=== PATIENT | female | born 1980 | race African-American/Black ===

== ENCOUNTER 2016-05-26 19:29 | Emergency (ER) | payer MEDICARE, MEDICAID ==
--- NOTE | 2016-05-26 20:03 | ER Document Report ---
ED Medical Screen (RME) - General Stated Complaint: VAGINAL BLEEDING Notes: 35 yo female c/o vaginal bleeding and lower abdominal cramping. has been on menses since 05/17, stasrted passing clots today. hx/o HTN, DM, gastric sleeve TRAVEL OUTSIDE OF THE [place] IN LAST 30 DAYS: No - Related Data Allergies/Adverse Reactions: No Known Allergies Allergy (Verified 11/07/13 12:06) Past Medical History - Past Medical History Cardiac Medical History: Reports: Hx Hypercholesterolemia, Hx Hypertension Denies: Hx Coronary Artery Disease, Hx Heart Attack Pulmonary Medical History: Denies: Hx Asthma, Hx Bronchitis, Hx COPD, Hx Pneumonia Neurological Medical History: Denies: Hx Cerebrovascular Accident, Hx Seizures Endocrine Medical History: Reports: Hx Diabetes Mellitus Type 1, Hx Diabetes Mellitus Type 2 Musculoskeltal Medical History: Denies Hx Arthritis Past Surgical History: Reports: Hx Appendectomy, Hx Genitourinary Surgery - Gastric Sleeve 01/2015 - Immunizations Hx Diphtheria, Pertussis, Tetanus Vaccination: No Physical Exam - Vital signs Vitals: Temp Pulse Resp BP Pulse Ox 97.9 F 56 L 16 154/86 H 100 05/26/16 19:43 05/26/16 19:43 05/26/16 19:43 05/26/16 19:43 05/26/16 19:43 Course - Vital Signs Vital signs: Temp Pulse Resp BP Pulse Ox 97.9 F 56 L 16 154/86 H 100 05/26/16 19:43 05/26/16 19:43 05/26/16 19:43 05/26/16 19:43 05/26/16 19:43
[2016-05-26] MEDS ORDERED: IBUPROFEN SUSP 100 MG/5 ML ORAL SYRINGE PO ONE (20:19)
[2016-05-26 20:29] LABS: ABSOLUTE BASOPHILS # (AUTO) 0.1 10^3/uL (0.0-0.2); ABSOLUTE LYMPHOCYTES (AUTO) 4.9 10^3/uL (0.5-4.7); ABSOLUTE MONOCYTES (AUTO) 0.8 10^3/uL (0.1-1.4); ABSOLUTE NEUT (AUTO) 5.3 10^3/uL (1.7-8.2); BASOPHILS % (AUTO) 0.8 % (0-2); EOSINOPHILS % (AUTO) 0.3 % (0-6); HEMATOCRIT 34.6 % (36.0-47.0); HEMOGLOBIN 11.5 g/dL (12.0-15.5); HGB HCT DIFFERENCE -0.1; MEAN CORPUSCULAR HEMOGLOBIN 28.1 pg (27.0-33.4); MEAN CORPUSCULAR HGB CONC 33.3 g/dL (32.0-36.0); MEAN CORPUSCULAR VOLUME 84 fl (80-97); MONOCYTES % (AUTO) 7.6 % (3-13); RED CELL DISTRIBUTION WIDTH 14.5 % (11.5-14.0); SEGMENTED NEUTROPHILS % (AUTO) 47.3 % (42-78); WHITE BLOOD COUNT 11.1 10^3/uL (4.0-10.5)
--- NOTE | 2016-05-26 23:45 | ER Document Report ---
ED General - General Chief Complaint: Vaginal Bleeding Stated Complaint: VAGINAL BLEEDING Notes: Patient is a 35-year-old female presents with complaint of lower stomach cramping and vaginal bleeding. Has been passing large amount clots. She did not know that she is . She's had one. . This ended in miscarriage. Bleeding is been ongoing for one week. No vomiting. No diarrhea. Pain is diffusely across the lower abdomen. TRAVEL OUTSIDE OF THE [place] IN LAST 30 DAYS: No - Related Data Allergies/Adverse Reactions: No Known Allergies Allergy (Verified 05/26/16 20:02) Past Medical History - Social History Smoking Status: Unknown if Ever Smoked Frequency of alcohol use: None Drug Abuse: None Family History: Reviewed & Not Pertinent Patient has suicidal ideation: No Patient has homicidal ideation: No - Past Medical History Cardiac Medical History: Reports: Hx Hypercholesterolemia, Hx Hypertension Denies: Hx Coronary Artery Disease, Hx Heart Attack Pulmonary Medical History: Denies: Hx Asthma, Hx Bronchitis, Hx COPD, Hx Pneumonia Neurological Medical History: Denies: Hx Cerebrovascular Accident, Hx Seizures Endocrine Medical History: Reports: Hx Diabetes Mellitus Type 1, Hx Diabetes Mellitus Type 2 Renal/ Medical History: Denies: Hx Peritoneal Dialysis Musculoskeltal Medical History: Denies Hx Arthritis Past Surgical History: Reports: Hx Appendectomy, Hx Genitourinary Surgery - Gastric Sleeve 01/2015 - Immunizations Hx Diphtheria, Pertussis, Tetanus Vaccination: No Review of Systems - Review of Systems Notes: My Normal Review Basic REVIEW OF SYSTEMS: CONSTITUTIONAL : Denies fever, chills, or sweats. Denies recent illness. RESPIRATORY: Denies cough, cold, or chest congestion. Denies shortness of breath, difficulty breathing, or wheezing. GASTROINTESTINAL: Lower abdominal pain. Denies nausea, vomiting, or diarrhea. Denies constipation. Last BM: GENITOURINARY: Denies difficulty urinating, painful urination, burning, frequency, or blood in urine. FEMALE GENITOURINARY: Heavy vaginal bleeding. MUSCULOSKELETAL: Denies neck or back pain or joint pain or swelling. SKIN: Denies rash or skin lesions. HEMATOLOGIC : Denies easy bruising or bleeding. NEUROLOGICAL: Denies altered mental status or loss of consciousness. ALL OTHER SYSTEMS REVIEWED AND NEGATIVE. Physical Exam - Vital signs Vitals: Temp Pulse Resp BP Pulse Ox 97.9 F 56 L 16 154/86 H 100 05/26/16 19:43 03/22/17 19:43 05/26/16 19:43 05/26/16 19:43 05/26/16 19:43 - Notes Notes: General Appearance: Well nourished, alert, cooperative, no acute distress, no obvious discomfort. Vitals: reviewed, See vital signs table. Head: no swelling or tenderness to the head Eyes: PERRL, EOMI, Conjuctiva clear Mouth: No decreasd moisture Lungs: No wheezing, No rales, No rhonci, No accessory muscle use, good air exchange bilaterally. Heart: Normal rate, Regular rythm, No murmur, no rub Abdomen: Normal BS, soft, No rigidity, moderate lower abdominal tenderness. Palpation, No guarding, no rebound, no abdominal masses, no organomegaly Pelvic: Normal external genitalia. Some blood in vaginal vault. Cervix is approximately fingertip on visualization. Extremities: strength 5/5 in all extremities, good pulses in all extremities, no swelling or tenderness in the extremities, no edema. Skin: warm, dry, appropriate color, no rash Neuro: speech clear, oriented x 3, normal affect, responds appropriately to questions. Course - Vital Signs Vital signs: Temp Pulse Resp BP Pulse Ox 98.1 F 71 16 151/96 H 100 05/27/16 03:12 05/27/16 03:12 05/27/16 03:12 05/27/16 03:12 05/27/16 03:12 - Laboratory Result Diagrams: 05/26/16 20:15 05/27/16 00:53 Laboratory results interpreted by me: 05/26/16 05/26/16 05/27/16 20:15 20:15 00:53 WBC 11.1 H Hgb 11.5 L Hct 34.6 L RDW 14.5 H Absolute Lymphocytes 4.9 H Potassium 3.0 L* Creatinine 0.51 L Serum HCG, Qual POSITIVE H Beta HCG, Quant 58672.00 H - Transfer of Care Notes: 05/27/16 06:39 Patient's findings on pelvic exam and also on ultrasound With most likely a miscarriage. Things are like she's having ectopic being that she does not have pain is focal to 170 other and also because her Quance is 19,000 and no ectopic is seen on ultrasound. Informed her that she must follow-up next 4 days for reevaluation and repeat of her ACG level. Informed her she should return to ER immediately if she has severe pain, heavy bleeding, or appears unwell. Patient' s abdomen is soft and minimally tender on reevaluation and she looks well. I verbally explained all results and follow-up plan with both the patient and the patient's mother. They agree with plan and patient will be discharged home. Dictation of this chart was performed using voice recognition software; therefore, there may be some unintended grammatical errors. Discharge - Discharge Clinical Impression: Vaginal bleeding in Qualifiers: Trimester: first trimester Qualified Code(s): O46.91 - Antepartum hemorrhage, unspecified, first trimester Condition: Good Disposition: HOME, SELF-CARE Additional Instructions: At this time we do not see evidence of a live on your ultrasound. I suspect that your most likely undergoing a miscarriage. You will most likely continue to have some bleeding for several days. Even though I suspect you're undergoing a miscarriage, it is not 100% certain that this is case. We want you to follow up with the OB doctor, your physician, or the ER in 4-5 days for reevaluation and repeat of your hormone level. Your hormone level today is just over 19,000. Please return to ER immediately if you have severe pain or heavy bleeding as this could be sign of a ectopic . I think ectopic is highly unlikely at this time; however, is always still possible. Referrals: MELA FORD MD [Primary Care Provider] - Follow up as needed GINGER BENITEZ MD [ACTIVE STAFF] - Follow up in 3-5 days
[2016-05-27 01:18] LABS: ALANINE AMINOTRANSFERASE 42 U/L (9-52); ALBUMIN 3.8 g/dL (3.5-5.0); ALKALINE PHOSPHATASE 75 U/L (38-126); ANION GAP 13 (5-19); ASPARTATE AMINO TRANSFERASE 22 U/L (14-36); BILIRUBIN,DIRECT 0.3 mg/dL (0.0-0.4); BILIRUBIN,TOTAL 0.6 mg/dL (0.2-1.3); BLOOD UREA NITROGEN 8 mg/dL (7-20); CALCIUM 9.5 mg/dL (8.4-10.2); CARBON DIOXIDE 26 mmol/L (22-30); CHLORIDE 105 mmol/L (98-107); CREATININE RESULT 0.51 mg/dL (0.52-1.25); GLUCOSE 84 mg/dL (75-110); SODIUM 144.2 mmol/L (137-145); TOTAL PROTEIN 7.7 g/dL (6.3-8.2)
[2016-05-27] MEDS ORDERED: POTASSIUM CHLORIDE 10 MEQ TABLET.SA PO ONE (01:57)
[2016-05-27 03:15] VITALS: BP 151/96
[2016-05-27 03:40] LABS: CHLAM PCR NOT DETECTED (NOT DETECT)
== END 2016-05-27 03:12 | disposition home or self-care (01) ==
LOC: ER 19:29
DX: O46.91 Antepartum hemorrhage, unspecified, first trimester (principal); R10.30 Lower abdominal pain, unspecified; E78.00 Pure hypercholesterolemia, unspecified; I10 Essential (primary) hypertension; E11.9 Type 2 diabetes mellitus without complications
CPT/HCPCS: 99284; 86900; 86901; 36415; 87210; 84702; 84703; 85025; 80053; 87491; 87591; 76817; 93976; A9270 ×2

== ENCOUNTER 2017-11-21 16:22 | Emergency (ER) | payer MEDICARE, MEDICAID ==
[2017-11-21 17:53] VITALS: BP 150/93
[2017-11-21] MEDS ORDERED: METOPROLOL TARTRATE 50 MG TABLET PO ONE (17:57)
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
== END 2017-11-21 18:03 | disposition home or self-care (01) ==
LOC: ER 16:22
DX: I10 Essential (primary) hypertension (principal); Z76.0 Encounter for issue of repeat prescription
CPT/HCPCS: 99281; A9270

== ENCOUNTER 2018-02-21 19:32 | Observation (INO) | payer MEDICARE, MEDICAID ==
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
[2018-02-21] MEDS ORDERED: AMLODIPINE BESYLATE 10 MG TABLET PO ONE (19:52)
[2018-02-21] MEDS ORDERED: NORMAL SALINE 1000 ML 1,000 ML IV ONE (19:52)
--- NOTE | 2018-02-21 20:27 | RADIOLOGY REPORT (SQ) ---
EXAM DESCRIPTION: CHEST SINGLE VIEW COMPLETED DATE/TIME: 02/21/2018 8:15 pm REASON FOR STUDY: chest pain COMPARISON: 09/17/2014 NUMBER OF VIEWS: One view. TECHNIQUE: Single frontal radiographic view of the chest acquired. LIMITATIONS: None. FINDINGS: LUNGS AND PLEURA: No opacities, masses or pneumothorax. No pleural effusion. MEDIASTINUM AND HILAR STRUCTURES: No masses. Contour normal. HEART AND VASCULAR STRUCTURES: Heart enlarged without failure. Normal vasculature. BONES: No acute findings. HARDWARE: None in the chest. OTHER: No other significant finding. IMPRESSION: HEART ENLARGED WITHOUT FAILURE. NO OTHER SIGNIFICANT RADIOGRAPHIC FINDING IN THE CHEST. TECHNICAL DOCUMENTATION: JOB ID: [id number] [employer]- All Rights Reserved Reading location - IP/workstation name: [email or web address]
--- NOTE | 2018-02-21 21:20 | RADIOLOGY REPORT (SQ) ---
CT HEAD WITHOUT IV CONTRAST HISTORY: Syncope. COMPARISON: None. TECHNIQUE: CT scan of the brain without IV contrast. This exam was performed according to our departmental dose-optimization program, which includes automated exposure control, adjustment of the mA and/or kV according to patient size and/or use of iterative reconstruction technique. FINDINGS: The ventricles, cisterns, and sulci are age-appropriate. No focal white matter lesions are seen. The oliveira-white matter differentiation is preserved without evidence of acute territorial infarction. No intracranial hemorrhage, midline shift, or extra-axial fluid collection is identified. No air-fluid levels are seen in the paranasal sinuses. The calvarium is intact. IMPRESSION: No acute intracranial abnormality.
[2018-02-21 21:25] LABS: ABSOLUTE BASOPHILS # (AUTO) 0.1 10^3/uL (0.0-0.2); ABSOLUTE LYMPHOCYTES (AUTO) 4.8 10^3/uL (0.5-4.7); ABSOLUTE MONOCYTES (AUTO) 0.5 10^3/uL (0.1-1.4); ABSOLUTE NEUT (AUTO) 3.5 10^3/uL (1.7-8.2); BASOPHILS % (AUTO) 0.9 % (0-2); EOSINOPHILS % (AUTO) 0.3 % (0-6); HEMATOCRIT 36.1 % (36.0-47.0); HEMOGLOBIN 11.9 g/dL (12.0-15.5); LYMPHOCYTES % (AUTO) 53.7 % (13-45); MEAN CORPUSCULAR HEMOGLOBIN 28.7 pg (27.0-33.4); MEAN CORPUSCULAR HGB CONC 32.9 g/dL (32.0-36.0); MEAN CORPUSCULAR VOLUME 88 fl (80-97); MONOCYTES % (AUTO) 5.5 % (3-13); PLATELET COUNT 385 10^3/uL (150-450); RED BLOOD COUNT 4.13 10^6/uL (3.72-5.28); RED CELL DISTRIBUTION WIDTH 13.8 % (11.5-14.0); SEGMENTED NEUTROPHILS % (AUTO) 39.6 % (42-78); TOTAL CELLS COUNTED % (AUTO) 100 %; WHITE BLOOD COUNT 8.9 10^3/uL (4.0-10.5)
[2018-02-21 21:47] LABS: ALANINE AMINOTRANSFERASE 6 U/L (9-52); ALBUMIN 3.6 g/dL (3.5-5.0); ALKALINE PHOSPHATASE 82 U/L (38-126); ANION GAP 6 (5-19); ASPARTATE AMINO TRANSFERASE 12 U/L (14-36); BILIRUBIN,DIRECT 0.2 mg/dL (0.0-0.4); BILIRUBIN,TOTAL 0.3 mg/dL (0.2-1.3); BLOOD UREA NITROGEN 16 mg/dL (7-20); CALCIUM 9.3 mg/dL (8.4-10.2); CARBON DIOXIDE 29 mmol/L (22-30); CHLORIDE 107 mmol/L (98-107); CREATINE KINASE 55 U/L (30-135); GLUCOSE 97 mg/dL (75-110); POTASSIUM 3.8 mmol/L (3.6-5.0); SODIUM 142.4 mmol/L (137-145); TOTAL PROTEIN 7.5 g/dL (6.3-8.2)
[2018-02-21 22:00] LABS: CREATINE KINASE MB < 0.22 ng/mL (<4.55)
[2018-02-21 22:01] LABS: TROPONIN I < 0.012 ng/mL
--- NOTE | 2018-02-21 23:01 | RADIOLOGY REPORT (SQ) ---
CT CHEST ANGIOGRAPHY WITHOUT THEN WITH IV CONTRAST HISTORY: Shortness of breath. Evaluate for pulmonary embolism. COMPARISON: None. TECHNIQUE: CT angiogram of the chest with IV contrast. 3-D MIP images were obtained in coronal and sagittal reconstructions. This exam was performed according to our departmental dose-optimization program, which includes automated exposure control, adjustment of the mA and/or kV according to patient size and/or use of iterative reconstruction technique. FINDINGS: The heart size is mildly enlarged. No pericardial effusion is seen. There is no thoracic aortic aneurysm or dissection. No acute pulmonary embolism is seen in the main or segmental branches. The pulmonary trunk is mildly enlarged measuring 3.6 cm. No mediastinal, hilar, or axillary adenopathy is seen. No consolidation, pleural effusion, or pneumothorax is identified. Limited views of the upper abdomen demonstrate prior gastric surgery and cholecystectomy. The osseous structures are intact. IMPRESSION: No acute pulmonary embolism.
[2018-02-22] MEDS ORDERED: NORMAL SALINE 1000 ML 1,000 ML IV PRN (07:10)
--- NOTE | 2018-02-22 07:54 | EKG REPORT ---
SEVERITY:- ABNORMAL ECG - SINUS RHYTHM LEFT VENTRICULAR HYPERTROPHY : Confirmed by: Fred Reardon MD 22-Feb-2018 07:53:49
[2018-02-22] MEDS ORDERED: ENOXAPARIN SODIUM INJ 40 MG/0.4 ML DISP.SYRIN SUBCUT SCH (10:00)
[2018-02-22 17:35] VITALS: BP 133/76
--- NOTE | 2018-02-22 18:20 | PDOC H&P ---
History of Present Illness Admission Date/PCP: 02/22/18 00:30 MELA FORD MD History of Present Illness: YIN LEMONS is a 37 year old female, She came to the emergency room last night for evaluation of loss of consciousness. The history was that she had unprovoked left-sided chest pain associated with loss of consciousness. Mother stated that when she regained consciousness she was confused, incoherent there was no associated tongue biting or urinary incontinence ,she is a diabetic the Accu-Chek that was done at the time was 106 so the symptoms she experienced was not from hypoglycemia. Patient's mother was very concerned because of family history of seizure, the mother felt that what she had was a seizure, in the emergency room a CTA chest was done because of concern for pulmonary embolism, this was negative CT head was done this was negative as well. The ED physician wanted her admitted for observation Past Medical History Cardiac Medical History: Reports: Hyperlipidema, Hypertension Endocrine Medical History: Reports: Diabetes Mellitus Type 2 Renal/ Medical History: Reports: None Malignancy Medical History: Reports: None GI Medical History: Reports: None Psychiatric Medical History: Reports: None Traumatic Medical History: Reports: None Hematology: Denies: Anemia Infectious Medical History: Reports: None Past Surgical History Past Surgical History: Reports: Appendectomy Social History Lives with: Family Smoking Status: Former Smoker - Advance Directive Resuscitation Status: Full Code Family History Family History: Reviewed & Not Pertinent Parental Family History Reviewed: Yes Children Family History Reviewed: Yes Sibling(s) Family History Reviewed.: Yes Medication/Allergy Home Medications: Metformin HCl [Glucophage] 1,000 mg PO BID 11/07/13 Metoprolol Tartrate [Lopressor] 50 mg PO BID #60 tablet 11/21/17 Norgestimate-Ethinyl Estradiol [Sprintec 28 Day Tablet] 1 each PO DAILY 02/22/18 Pediatric Multivitamin No.42 [Flintstones] 1 each PO DAILY 02/22/18 Allergies/Adverse Reactions: No Known Allergies Allergy (Verified 11/21/17 16:23) Review of Systems Constitutional: ABSENT: chills, fever(s), headache(s), weight gain, weight loss Eyes: ABSENT: visual disturbances Ears: ABSENT: hearing changes Cardiovascular: ABSENT: chest pain, dyspnea on exertion, edema, orthropnea, palpitations Respiratory: ABSENT: cough, hemoptysis Gastrointestinal: ABSENT: abdominal pain, constipation, diarrhea, hematemesis, hematochezia, nausea, vomiting Genitourinary: ABSENT: dysuria, hematuria Musculoskeletal: ABSENT: joint swelling Integumentary: ABSENT: rash, wounds Neurological: PRESENT: confusion, syncope, other Psychiatric: ABSENT: anxiety, depression, homidical ideation, suicidal ideation Endocrine: ABSENT: cold intolerance, heat intolerance, menstrual abnormalities, polydipsia, polyuria Hematologic/Lymphatic: ABSENT: easy bleeding, easy bruising, lymphadenopathy Physical Exam Vital Signs: Temp Pulse Resp BP Pulse Ox 98.1 F 70 16 133/76 H 100 02/22/18 15:20 02/22/18 15:20 02/22/18 15:20 02/22/18 15:20 02/22/18 15:20 Intake & Output 02/21/18 02/22/18 02/23/18 06:59 06:59 06:59 Intake Total 1325 Balance 1325 Weight 99.79 kg General appearance: PRESENT: no acute distress, well-developed, well-nourished Head exam: PRESENT: atraumatic, normocephalic Eye exam: PRESENT: conjunctiva pink, EOMI, PERRLA Ear exam: PRESENT: normal external ear exam Mouth exam: PRESENT: moist, tongue midline Neck exam: PRESENT: full ROM Respiratory exam: PRESENT: clear to auscultation meron Cardiovascular exam: PRESENT: RRR, +S1, +S2 Vascular exam: PRESENT: normal capillary refill GI/Abdominal exam: PRESENT: normal bowel sounds, soft Rectal exam: PRESENT: deferred Neurological exam: PRESENT: alert, awake, oriented to person, oriented to place, oriented to time, oriented to situation, CN II-XII grossly intact Psychiatric exam: PRESENT: appropriate affect, normal mood Skin exam: PRESENT: dry, intact, warm Results Laboratory Results: 02/21/18 21:19 02/21/18 21:19 02/21/18 02/21/18 21:19 21:19 WBC 8.9 RBC 4.13 Hgb 11.9 L Hct 36.1 MCV 88 MCH 28.7 MCHC 32.9 RDW 13.8 Plt Count 385 Seg Neutrophils % 39.6 L Lymphocytes % 53.7 H Monocytes % 5.5 Eosinophils % 0.3 Basophils % 0.9 Absolute Neutrophils 3.5 Absolute Lymphocytes 4.8 H Absolute Monocytes 0.5 Absolute Eosinophils 0.0 Absolute Basophils 0.1 Sodium 142.4 Potassium 3.8 Chloride 107 Carbon Dioxide 29 Anion Gap 6 BUN 16 Creatinine 0.71 Est GFR ( Amer) > 60 Est GFR (Non-Af Amer) > 60 Glucose 97 Calcium 9.3 Total Bilirubin 0.3 AST 12 L ALT 6 L Alkaline Phosphatase 82 Total Protein 7.5 Albumin 3.6 02/21/18 02/21/18 02/22/18 21:19 21:19 00:06 Creatine Kinase 55 CK-MB (CK-2) < 0.22 Troponin I < 0.012 < 0.012 02/22/18 02/22/18 02/22/18 08:12 08:12 13:14 Creatine Kinase 44 43 CK-MB (CK-2) Troponin I < 0.012 02/22/18 15:00 Creatine Kinase CK-MB (CK-2) Troponin I < 0.012 Impressions: Chest X-Ray 02/21/18 19:51 IMPRESSION: HEART ENLARGED WITHOUT FAILURE. NO OTHER SIGNIFICANT RADIOGRAPHIC FINDING IN THE CHEST. Head CT 02/21/18 19:51 IMPRESSION: No acute intracranial abnormality. Chest/Abdomen CTA 02/21/18 22:09 IMPRESSION: No acute pulmonary embolism. Assessment & Plan - Diagnosis (1) Seizure disorder Is this a current diagnosis for this admission?: Yes Plan: These symptoms she manifested is more consistent with seizure,She had what seems to be post ictal Confusion, EEG was done, official report pending, she will empirically start Keppra and discharged home
--- NOTE | 2018-02-22 18:31 | PDOC DISCHARGE SUMMARY ---
General - Admit/Disc Date/PCP Admission Date/Primary Care Provider: 02/22/18 00:30 MELA FORD MD Discharge Date: 02/22/18 - Discharge Diagnosis (1) Seizure disorder Is this a current diagnosis for this admission?: Yes - Additional Information Resuscitation Status: Full Code Prescriptions: Levetiracetam [Keppra 500 mg Tablet] 500 mg PO Q12 #60 tablet Home Medications: Metformin HCl [Glucophage] 1,000 mg PO BID 11/07/13 Metoprolol Tartrate [Lopressor] 50 mg PO BID #60 tablet 11/21/17 Levetiracetam [Keppra 500 mg Tablet] 500 mg PO Q12 #60 tablet 02/22/18 Norgestimate-Ethinyl Estradiol [Sprintec 28 Day Tablet] 1 each PO DAILY 02/22/18 Pediatric Multivitamin No.42 [Flintstones] 1 each PO DAILY 02/22/18 History of Present Illness History of Present Illness: YIN LEMONS is a 37 year old female, She came to the emergency room last night for evaluation of loss of consciousness. The history was that she had unprovoked left-sided chest pain associated with loss of consciousness. Mother stated that when she regained consciousness she was confused, incoherent there was no associated tongue biting or urinary incontinence ,she is a diabetic the Accu-Chek that was done at the time was 106 so the symptoms she experienced was not from hypoglycemia. Patient's mother was very concerned because of family history of seizure, the mother felt that what she had was a seizure, in the emergency room a CTA chest was done because of concern for pulmonary embolism, this was negative CT head was done this was negative as well. The ED physician wanted her admitted for observation Hospital Course Hospital Course: Patient was admitted this morning for observation, she had loss of consciousness felt to be due to seizure activity, EEG was done official result is pending. She is empirically started on Keppra 500 mg p.o. twice daily she will be discharged home today Physical Exam Vital Signs: Temp Pulse Resp BP Pulse Ox 98.1 F 70 16 133/76 H 100 02/22/18 15:20 02/22/18 15:20 02/22/18 15:20 02/22/18 15:20 02/22/18 15:20 Intake & Output 02/21/18 02/22/18 02/23/18 06:59 06:59 06:59 Intake Total 1325 Balance 1325 Weight 99.79 kg General appearance: PRESENT: no acute distress, well-developed, well-nourished Head exam: PRESENT: atraumatic, normocephalic Eye exam: PRESENT: conjunctiva pink, EOMI, PERRLA Ear exam: PRESENT: normal external ear exam Mouth exam: PRESENT: moist, tongue midline Neck exam: PRESENT: full ROM Respiratory exam: PRESENT: clear to auscultation meron Cardiovascular exam: PRESENT: RRR, +S1, +S2 Pulses: PRESENT: normal dorsalis pedis pul, +2 pedal pulses bilateral Vascular exam: PRESENT: normal capillary refill GI/Abdominal exam: PRESENT: normal bowel sounds, soft Rectal exam: PRESENT: deferred Neurological exam: PRESENT: alert, awake, oriented to person, oriented to place, oriented to time, oriented to situation, CN II-XII grossly intact Psychiatric exam: PRESENT: appropriate affect, normal mood Skin exam: PRESENT: dry, intact, warm Results Laboratory Results: 02/21/18 21:19 02/21/18 21:19 02/21/18 02/21/18 21:19 21:19 WBC 8.9 RBC 4.13 Hgb 11.9 L Hct 36.1 MCV 88 MCH 28.7 MCHC 32.9 RDW 13.8 Plt Count 385 Seg Neutrophils % 39.6 L Lymphocytes % 53.7 H Monocytes % 5.5 Eosinophils % 0.3 Basophils % 0.9 Absolute Neutrophils 3.5 Absolute Lymphocytes 4.8 H Absolute Monocytes 0.5 Absolute Eosinophils 0.0 Absolute Basophils 0.1 Sodium 142.4 Potassium 3.8 Chloride 107 Carbon Dioxide 29 Anion Gap 6 BUN 16 Creatinine 0.71 Est GFR ( Amer) > 60 Est GFR (Non-Af Amer) > 60 Glucose 97 Calcium 9.3 Total Bilirubin 0.3 AST 12 L ALT 6 L Alkaline Phosphatase 82 Total Protein 7.5 Albumin 3.6 02/21/18 02/21/18 02/22/18 21:19 21:19 00:06 Creatine Kinase 55 CK-MB (CK-2) < 0.22 Troponin I < 0.012 < 0.012 02/22/18 02/22/18 02/22/18 08:12 08:12 13:14 Creatine Kinase 44 43 CK-MB (CK-2) Troponin I < 0.012 02/22/18 15:00 Creatine Kinase CK-MB (CK-2) Troponin I < 0.012 Impressions: Chest X-Ray 02/21/18 19:51 IMPRESSION: HEART ENLARGED WITHOUT FAILURE. NO OTHER SIGNIFICANT RADIOGRAPHIC FINDING IN THE CHEST. Head CT 02/21/18 19:51 IMPRESSION: No acute intracranial abnormality. Chest/Abdomen CTA 02/21/18 22:09 IMPRESSION: No acute pulmonary embolism. Qualifiers - * PATIENT BEING DISCHARGED WITH ANY OF THE FOLLOWING DIAGNOSIS: No
[2018-02-22] MEDS ORDERED: METOPROLOL TARTRATE 50 MG TABLET PO SCH (22:00)
[2018-02-22] MEDS ORDERED: LEVETIRACETAM 500 MG TABLET PO SCH (22:00)
--- NOTE | 2018-02-23 09:16 | EEG PRO FEE REPORT ---
EEG INTERPRETATION PATIENT NAME: YIN LEMONS ROOM#: 322 ORDER#: [id number] DATE OF STUDY: 02/22/2018 : 1980 REFERRING MD: MELA FORD M.D. MEDICATIONS: Metformin, Metoprolol, Lovenox, oral contraceptive pill History This is a 37 year old right handed woman with a history of hypertension, gastric sleeve, type II diabetes, gallstones, laparoscopic cholecystectomy who was admitted after an episode of passing out while taking a bath and her mother witnessed her having a seizure. Her uncle has seizures. This EEG was requested for syncope verses seizure. EEG Interpretation This EEG was recorded in the mostly drowsy with some awake and sleep states. The awake EEG is characterized by a well organized background with a well developed and reactive posterior dominant rhythm of 9 Hz. Drowsiness is characterized by slowing of the background rhythms. Vertex waves and sleep spindles were seen in the midline head regions. Photic stimulation resulted in no significant changes. There were no epileptiform abnormalities. The EKG showed a regular rhythm. EEG Impression This EEG is within normal limits in the mostly drowsy with awake and sleep. INTERPRETING PHYSICIAN: GLORIA IVY M.D. /: MTEFFT TT: [id number] ID: [id number] /: [id number] TD: [id number] JOB: [id number] cc:Meg BRICENO M.D. > MTDD
[2018-02-23] MEDS ORDERED: [UNRECOGNIZED DRUG - OTHER] PO SCH (10:00)
[2018-02-23] MEDS ORDERED: NORGESTIMATE ETHINYL ESTRADIOL PO SCH (10:00)
[2018-02-23] MEDS ORDERED: MULTIVITAMINS W-IRON TABLET, CHEWABLE PO SCH (10:00)
== END 2018-02-22 19:50 | disposition home or self-care (01) ==
LOC: ER 19:32 → EH 02-22 00:30 → 3W 02-22 10:47
PROVIDERS: ADMIT Internal Medicine; ATTEND Internal Medicine
DX: G40.909 Epilepsy, unspecified, not intractable, without status epilepticus (principal); R07.9 Chest pain, unspecified; E11.8 Type 2 diabetes mellitus with unspecified complications; I10 Essential (primary) hypertension; Z79.899 Other long term (current) drug therapy; Z79.84 Long term (current) use of oral hypoglycemic drugs; Z82.0 Family history of epilepsy and other diseases of the nervous system; Z90.49 Acquired absence of other specified parts of digestive tract; Z87.891 Personal history of nicotine dependence; Z98.84 Bariatric surgery status; Z79.3 Long term (current) use of hormonal contraceptives
CPT/HCPCS: 95819 ×2; 93005; 99285; 96360; 96361; 36415 ×2; 82553; 82962; 82550 ×2; 85025; 80053; 84484 ×2; 71045; 70450; 71275; 93010; J1650; J7030 ×2; A9270; G0378

== ENCOUNTER 2018-07-24 22:10 | Emergency (ER) | payer MEDICARE, MEDICAID ==
[2018-07-24] MEDS ORDERED: ONDANSETRON 4 MG TAB.RAPDIS PO ONE (22:28)
[2018-07-24] MEDS ORDERED: LEVETIRACETAM 500 MG TABLET PO ONE ×2 (22:28→22:30)
--- NOTE | 2018-07-24 22:31 | ER Document Report ---
ED General - General Stated Complaint: POSSIBLE SEIZURE Time Seen by Provider: 07/24/18 22:25 Primary Care Provider: MELA FORD MD [Primary Care Provider] - Follow up in 3-5 days Notes: Patient is a 38-year-old female with a past medical history of developmental delay, hypertension, previous history of seizures, presents by EMS due to concerns of a generalized tonic-clonic seizure with a postictal phase. Patient has returned to baseline per mother and EMS at the time of arrival. The patient had a similar episode in February, was apparently prescribed Keppra but never started taking it for uncertain reasons. Patient denies any symptoms at the time of my assessment other than some mild left-sided chest discomfort which it is noted that she had on her last presentation after her seizure episode. Patient describes it as a mild, sharp, intermittent discomfort to the left chest. Nothing improves or worsens the discomfort. No obvious trigger for today's episode of seizure. Patient denies sustaining any trauma during the seizure and mother likewise states that she does not believe this patient injured herself today. Has not seen her primary care doctor regarding today's concerns. TRAVEL OUTSIDE OF THE [place] IN LAST 30 DAYS: No - Related Data Allergies/Adverse Reactions: No Known Allergies Allergy (Verified 11/21/17 16:23) Past Medical History - General Information source: Parent - Social History Smoking Status: Never Smoker Frequency of alcohol use: None Drug Abuse: None Lives with: Parents Family History: Reviewed & Not Pertinent - Past Medical History Cardiac Medical History: Reports: Hx Hypercholesterolemia, Hx Hypertension Denies: Hx Coronary Artery Disease, Hx Heart Attack Pulmonary Medical History: Denies: Hx Asthma, Hx Bronchitis, Hx COPD, Hx Pneumonia Neurological Medical History: Denies: Hx Cerebrovascular Accident, Hx Seizures Endocrine Medical History: Reports: Hx Diabetes Mellitus Type 1, Hx Diabetes Mellitus Type 2 Renal/ Medical History: Denies: Hx Peritoneal Dialysis Musculoskeletal Medical History: Denies Hx Arthritis Psychiatric Medical History: Denies: Hx Depression Past Surgical History: Reports: Hx Appendectomy, Hx Genitourinary Surgery - Gastric Sleeve 01/2015 - Immunizations Hx Diphtheria, Pertussis, Tetanus Vaccination: No Review of Systems - Review of Systems Notes: Constitutional: Negative for fever. HENT: Negative for sore throat. Eyes: Negative for visual changes. Cardiovascular: Negative for palpitations Respiratory: Positive for cough Gastrointestinal: Negative for abdominal pain, vomiting or diarrhea. Genitourinary: Negative for dysuria. Musculoskeletal: Positive for chest wall pain Skin: Negative for rash. Neurological: Negative for headaches, weakness or numbness. 10 point ROS negative except as marked above and in HPI. Physical Exam - Vital signs Vitals: Temp Pulse Resp BP Pulse Ox 98.0 F 79 20 173/81 H 100 07/24/18 22:30 07/24/18 22:30 07/24/18 22:30 07/24/18 22:30 07/24/18 22:30 Interpretation: Hypertensive Notes: PHYSICAL EXAMINATION: GENERAL: Well-appearing, well-nourished and in no acute distress. HEAD: Atraumatic, normocephalic. EYES: Pupils equal round and reactive to light, extraocular movements intact, sclera anicteric, conjunctiva are normal. ENT: nares patent, oropharynx clear without exudates. Moist mucous membranes. NECK: Normal range of motion, supple without lymphadenopathy LUNGS: Breath sounds clear to auscultation bilaterally and equal. No wheezes rales or rhonchi. HEART: Regular rate and rhythm without murmurs ABDOMEN: Soft, nontender, normoactive bowel sounds. No guarding, no rebound. No masses appreciated. EXTREMITIES: Normal range of motion, no pitting or edema. No cyanosis. NEUROLOGICAL: Face symmetric. Tongue protrudes midline. Extraocular motions intact. Pupils are 2 mm and equally reactive. Normal speech, normal gait. 5 out of 5 strength in both the distal and proximal upper and lower extremities bilaterally. Sensation is grossly intact throughout. Finger to nose testing normal. Pronator drift normal. PSYCH: Normal mood, normal affect. SKIN: Warm, Dry, normal turgor, no rashes or lesions noted. Course - Re-evaluation Re-evalutation: 07/24/18 22:29 Presentation of well-appearing patient after having a seizure. Patient has a known history of seizures, was hospitalized in February for the same. Apparently Dr. Ford had wanted her started on Keppra at that time but the patient and mother state that she has not been taking Keppra over the last 5 months. I have given her a load of Keppra here in the emergency department and will start her on 500 mg twice daily. No obvious trigger for today's episode. The patient has returned to baseline without intervention. No focal neurologic deficits. No infectious symptoms, vital sign abnormalities, or evidence of trauma. No indication for laboratories or imaging based on reassuring evaluation and known history of seizures. The mother did report that the patient has had a cough today and the chest x-ray as well as EKG were obtained as patient did complain of some mild chest discomfort reproducible with coughing and movement. These are noted to be normal. The patient will be discharged home with recommendations for close follow-up with primary care as well as their neurologist. Return precautions have been reviewed and patient has verbalized understanding. - Vital Signs Vital signs: Temp Pulse Resp BP Pulse Ox 98.0 F 79 18 166/87 H 100 07/24/18 22:30 07/24/18 22:30 07/25/18 00:01 07/25/18 00:01 07/25/18 00:01 - Diagnostic Test Radiology reviewed: Image reviewed, Reports reviewed Radiology results interpreted by me: 07/25/18 04:44 Chest x-ray: No acute infiltrate or pneumothorax - EKG Interpretation by Me Additional EKG results interpreted by me: 07/25/18 04:44 Sinus rhythm, rate 82. No ST elevations or depressions. QTC is 430. Discharge - Discharge Clinical Impression: Seizure, Cough Condition: Good Disposition: HOME, SELF-CARE Additional Instructions: Today you had a seizure. It is very important that you do not engage in any activities that could result in severe injury should you have a seizure. Specifically, do not drive a vehicle, go into a body of water, take a bath, climb ladders, or operate any heavy machinery until you have been cleared by your neurologist. Please return to the ED immediately if you have multiple seizures close together, develop a severe headache, weakness, numbness, difficulty speaking, have a seizure in which you do not return to normal within 1 hour of the seizure, or have any other symptoms that are concerning to you. Prescriptions: Levetiracetam [Keppra 500 mg Tablet] 500 mg PO Q12 #60 tablet Referrals: MELA FORD MD [Primary Care Provider] - Follow up in 3-5 days
--- NOTE | 2018-07-24 23:01 | RADIOLOGY REPORT (SQ) ---
EXAM DESCRIPTION: XR CHEST 1 VIEW COMPLETED DATE/TME: 07/24/2018 22:30 CLINICAL HISTORY: 38 years, Female, cough COMPARISON: 02/21/2018. NUMBER OF VIEWS: 1 TECHNIQUE: AP portable upright single view of the chest was obtained. LIMITATIONS: None. FINDINGS: Prominent cardiac mediastinal silhouette with cardiomegaly. No discrete focal opacity, pleural effusion or pneumothorax. Degenerative changes of the thoracic spine. IMPRESSION: Cardiomegaly without acute pulmonary abnormality. copyright 2010 [employer]- All Rights Reserved
[2018-07-25 00:22] VITALS: BP 166/87
--- NOTE | 2018-07-26 11:23 | EKG REPORT ---
SEVERITY:- ABNORMAL ECG - SINUS RHYTHM FIRST DEGREE AV BLOCK : Confirmed by: Jaja Lynn 26-Jul-2018 11:22:29
== END 2018-07-25 00:22 | disposition home or self-care (01) ==
LOC: ER 22:10
DX: G40.909 Epilepsy, unspecified, not intractable, without status epilepticus (principal); R05 Cough; R62.50 Unspecified lack of expected normal physiological development in childhood; I10 Essential (primary) hypertension; E78.00 Pure hypercholesterolemia, unspecified; E11.9 Type 2 diabetes mellitus without complications
CPT/HCPCS: 93005; 99284; 71045; 93010; A9270 ×2; S0119

== ENCOUNTER → 2018-07-25 | Outpatient (CLI) | payer MEDICARE, MEDICAID ==
--- NOTE | 2018-07-25 15:57 | RADIOLOGY REPORT (SQ) ---
EXAM DESCRIPTION: KNEE RIGHT 2 VIEWS COMPLETED DATE/TIME: 07/25/2018 3:38 pm REASON FOR STUDY: M25.561 PAIN IN RIGHT KNEE M25.561 PAIN IN RIGHT KNEE COMPARISON: None. NUMBER OF VIEWS: Two views. TECHNIQUE: AP and lateral radiographic images acquired of the right knee. LIMITATIONS: None. FINDINGS: MINERALIZATION: Normal. BONES: No acute fracture or dislocation. No worrisome bone lesions. JOINT: Mild joint space narrowing in all compartments. No joint effusion. SOFT TISSUES: No soft tissue swelling. No radio-opaque foreign body. OTHER: No other significant finding. IMPRESSION: Mild osteoarthritic changes with joint space narrowing in all compartments. No acute fi ndings. TECHNICAL DOCUMENTATION: JOB ID: [id number] [employer]- All Rights Reserved Reading location - IP/workstation name: [email or web address]
== END ==
LOC: OD 15:20
PROVIDERS: ATTEND Internal Medicine
DX: M25.561 Pain in right knee (principal); G40.909 Epilepsy, unspecified, not intractable, without status epilepticus

== ENCOUNTER → 2018-08-02 | Outpatient (CLI) | payer MEDICARE, MEDICAID ==
--- NOTE | 2018-08-02 13:14 | RADIOLOGY REPORT (SQ) ---
EXAM DESCRIPTION: MRI HEAD COMBO COMPLETED DATE/TIME: 08/02/2018 1:00 pm REASON FOR STUDY: G40.909 EPILEPSY,UNSPECIFIED,NOT INTRACTABLE, WITHOUT STATUS EPILEPTICUS G40.909 EPILEPSY, UNSP, NOT INTRACTABLE, WITHOUT STATUS EPIL COMPARISON: CT brain 02/21/2018 TECHNIQUE: Multiplanar imaging includes noncontrasted T1, T2, FLAIR, diffusion with ADC map and post gadolinium contrast T1 sequences. Images stored on PACS. CONTRAST TYPE AND DOSE: 20 mL Dotarem. RENAL FUNCTION: Not indicated. ACR Type II contrast agent associated with few, if any, unconfounded cases of NSF LIMITATIONS: None. FINDINGS: ANATOMY: No anomalies. Normal vascular flow voids. Pituitary fossa normal. CSF SPACES: Normal in size and contour. No hemorrhage. CEREBRUM: Sulci and gyri normal in size and contour. Normal white matter signal on FLAIR imaging. No evidence of hemorrhage, mass, or extraaxial fluid collection. No abnormal enhancement post contrast. POSTERIOR FOSSA: No signal alteration. No hemorrhage. No edema, masses, or mass effect. Internal vivi tory canals, cerebellopontine angles, mastoids normal. No enhancing lesions. No abnormal enhancement post contrast. DIFFUSION IMAGING: Negative for acute or subacute infarction. ORBITS: No masses. Globes normal. PARANASAL SINUSES: No fluid levels. Mucosa normal. OTHER: No other significant finding. IMPRESSION: NORMAL MRI OF THE BRAIN WITHOUT AND WITH INTRAVENOUS GADOLINIUM CONTRAST. EVIDENCE OF ACUTE STROKE: NO. TECHNICAL DOCUMENTATION: JOB ID: [id number] [employer]- All Rights Reserved Reading location - IP/workstation name: [email or web address]
== END ==
LOC: RAD 11:54
PROVIDERS: ATTEND Internal Medicine
DX: G40.909 Epilepsy, unspecified, not intractable, without status epilepticus (principal)
CPT/HCPCS: 82565; 70553; A9576

== ENCOUNTER 2019-08-14 15:41 | Emergency (ER) | payer MEDICARE, MEDICAID ==
--- NOTE | 2019-08-14 17:45 | ER Document Report ---
ED Medical Screen (RME) - General Chief Complaint: Seizure Stated Complaint: POSSIBLE SEIZURE Time Seen by Provider: 08/14/19 17:38 Primary Care Provider: MELA FORD MD [Primary Care Provider] - Follow up as needed Mode of Arrival: Medic Information source: Patient Notes: 39-year-old female presented to ED for complaint of having 16 seizures today. She states she went out of town a couple weeks ago when she ran out of her seizure medication and was out of the medication for 7 days when she returned to town she started taking her medication again which was about a week ago. She states when she had her 16 seizures today she fell caught her right hand in a hole injuring her hand. She states she does have a lot of shortness of breath and has severe chest pain. She is on a medication called Briviact for her seizures. She is also on metformin for diabetes and metoprolol for high blood pressure. She states she does not smoke drink or use any drugs. She is alert oriented respirations regular nonlabored at this time. I have greeted and performed a rapid initial assessment of this patient. A comprehensive ED assessment and evaluation of the patient, analysis of test results and completion of medical decision making process will be conducted by an additional ED providers. TRAVEL OUTSIDE OF THE [place] IN LAST 30 DAYS: No - Related Data Allergies/Adverse Reactions: No Known Allergies Allergy (Verified 11/21/17 16:23) Past Medical History - Past Medical History Cardiac Medical History: Reports: Hx Hypercholesterolemia, Hx Hypertension Denies: Hx Coronary Artery Disease, Hx Heart Attack Pulmonary Medical History: Denies: Hx Asthma, Hx Bronchitis, Hx COPD, Hx Pneumonia Neurological Medical History: Denies: Hx Cerebrovascular Accident, Hx Seizures Endocrine Medical History: Reports: Hx Diabetes Mellitus Type 1, Hx Diabetes Mellitus Type 2 Renal/ Medical History: Denies: Hx Peritoneal Dialysis Musculoskeltal Medical History: Denies Hx Arthritis Psychiatric Medical History: Denies: Hx Depression Past Surgical History: Reports: Hx Appendectomy, Hx Genitourinary Surgery - Gastric Sleeve 01/2015 - Immunizations Hx Diphtheria, Pertussis, Tetanus Vaccination: No Physical Exam - Vital signs Vitals: Temp Pulse Resp BP Pulse Ox 98.6 F 65 16 162/79 H 100 08/14/19 15:52 08/14/19 15:52 08/14/19 15:52 08/14/19 15:52 08/14/19 15:52 Course - Vital Signs Vital signs: Temp Pulse Resp BP Pulse Ox 98.6 F 65 16 162/79 H 100 08/14/19 15:52 08/14/19 15:52 08/14/19 15:52 08/14/19 15:52 08/14/19 15:52 Doctor's Discharge - Discharge Referrals: MELA FORD MD [Primary Care Provider] - Follow up as needed
[2019-08-14] MEDS ORDERED: ASPIRIN 81 MG TABLET, CHEWABLE PO ONE (17:46)
[2019-08-14 18:33] LABS: ABSOLUTE BASOPHILS # (AUTO) 0.1 10^3/uL (0.0-0.2); ABSOLUTE EOSINOPHILS # (AUTO) 0.1 10^3/uL (0.0-0.6); ABSOLUTE LYMPHOCYTES (AUTO) 4.4 10^3/uL (0.5-4.7); ABSOLUTE MONOCYTES (AUTO) 0.6 10^3/uL (0.1-1.4); ABSOLUTE NEUT (AUTO) 4.7 10^3/uL (1.7-8.2); BASOPHILS % (AUTO) 0.9 % (0-2); EOSINOPHILS % (AUTO) 0.6 % (0-6); HEMATOCRIT 37.9 % (36.0-47.0); HEMOGLOBIN 12.3 g/dL (12.0-15.5); MEAN CORPUSCULAR HGB CONC 32.4 g/dL (32.0-36.0); MEAN CORPUSCULAR VOLUME 89 fl (80-97); MONOCYTES % (AUTO) 6.2 % (3-13); PLATELET COUNT 364 10^3/uL (150-450); RED BLOOD COUNT 4.24 10^6/uL (3.72-5.28); RED CELL DISTRIBUTION WIDTH 13.7 % (11.5-14.0); SEGMENTED NEUTROPHILS % (AUTO) 47.3 % (42-78); TOTAL CELLS COUNTED % (AUTO) 100 %; WHITE BLOOD COUNT 9.9 10^3/uL (4.0-10.5)
[2019-08-14 18:36] LABS: APPEARANCE,URINE CLEAR; BILIRUBIN,URINE NEGATIVE (NEGATIVE); COLOR,URINE YELLOW; GLUCOSE, URINE NEGATIVE (NEGATIVE); KETONES,URINE NEGATIVE (NEGATIVE); LEUKOCYTE ESTERASE,URINE NEGATIVE (NEGATIVE); NITRITE,URINE NEGATIVE (NEGATIVE); PROTEIN,URINE 30 mg/dL (NEGATIVE); URINE SPECIFIC GRAVITY 1.018; UROBILINOGEN,URINE NEGATIVE mg/dL (<2.0)
[2019-08-14 18:37] LABS: ADD MANUAL MICROSCOPIC YES
--- NOTE | 2019-08-14 18:41 | RADIOLOGY REPORT (SQ) ---
EXAM DESCRIPTION: CHEST 2 VIEWS IMAGES COMPLETED DATE/TIME: 08/14/2019 5:00 pm REASON FOR STUDY: Pain chest. COMPARISON: 07/24/2018 EXAM PARAMETERS: NUMBER OF VIEWS: two views TECHNIQUE: Digital Frontal and Lateral radiographic views of the chest acquired. RADIATION DOSE: NA LIMITATIONS: none FINDINGS: LUNGS AND PLEURA: No opacities, masses or pneumothorax. No pleural effusion. MEDIASTINUM AND HILAR STRUCTURES: No masses or contour abnormalities. HEART AND VASCULAR STRUCTURES: Heart normal size. No evidence for failure. BONES: No acute findings. HARDWARE: None in the chest. OTHER: No other significant finding. IMPRESSION: NO ACUTE RADIOGRAPHIC FINDING IN THE CHEST. TECHNICAL DOCUMENTATION: JOB ID: [id number] 2010 [employer]- All Rights Reserved Reading location - IP/workstation name: [id number]
[2019-08-14 19:04] LABS: ALBUMIN 3.5 g/dL (3.5-5.0); ALKALINE PHOSPHATASE 93 U/L (38-126); ANION GAP 6 (5-19); ASPARTATE AMINO TRANSFERASE 18 U/L (14-36); BILIRUBIN,TOTAL 0.2 mg/dL (0.2-1.3); BLOOD UREA NITROGEN 8 mg/dL (7-20); CALCIUM 8.6 mg/dL (8.4-10.2); CARBON DIOXIDE 31 mmol/L (22-30); CHLORIDE 103 mmol/L (98-107); GLUCOSE 100 mg/dL (75-110); TOTAL PROTEIN 7.5 g/dL (6.3-8.2)
[2019-08-14] MEDS ORDERED: POTASSIUM CHLORIDE 10 MEQ TABLET.ER PO ONE ×2 (20:08→20:25)
[2019-08-14] MEDS ORDERED: POTASSIUM CHLORIDE 20 MEQ PACKET PO ONE (20:08)
[2019-08-14] MEDS ORDERED: ONDANSETRON HCL INJ/PF 4 MG/2 ML SDV IV ONE (20:17)
--- NOTE | 2019-08-14 20:24 | ER Document Report ---
ED Seizure - General Chief Complaint: Seizure Stated Complaint: POSSIBLE SEIZURE Time Seen by Provider: 08/14/19 17:38 Primary Care Provider: JESUS HERNANDEZ MD [NO LOCAL MD] - Follow up tomorrow MELA FORD MD [Primary Care Provider] - Follow up tomorrow Mode of Arrival: Medic Notes: Patient is a 39-year-old female who presents to the emergency department after having a self-reported 16 seizures at home. First seizure started around 1:30 to 2:00 in the morning. Patient states that she was out of her brivaracetam, her seizure medication for about a week, but restarted them about a week ago. Patient states that she can feel when her seizures are coming on. She has been here in the emergency department for almost 5 hours without having a seizure. Patient states that she feels okay at this time. Patient also reports nausea, vomiting, and diarrhea. Denies any abdominal pain. Patient also has a history of hypertension and diabetes. She is also on metformin and metoprolol. Patient sees Dr. Hernandez for seizure management. Patient also states that she has history of a developmental delay. - Related Data Allergies/Adverse Reactions: No Known Allergies Allergy (Verified 11/21/17 16:23) Past Medical History - General Information source: Patient - Social History Smoking Status: Never Smoker Chew tobacco use (# tins/day): No Frequency of alcohol use: None Drug Abuse: None Family History: Reviewed & Not Pertinent Patient has homicidal ideation: No - Past Medical History Cardiac Medical History: Reports: Hx Hypercholesterolemia, Hx Hypertension Denies: Hx Coronary Artery Disease, Hx Heart Attack Pulmonary Medical History: Denies: Hx Asthma, Hx Bronchitis, Hx COPD, Hx Pneumonia Neurological Medical History: Denies: Hx Cerebrovascular Accident, Hx Seizures Endocrine Medical History: Reports: Hx Diabetes Mellitus Type 1, Hx Diabetes Mellitus Type 2 Renal/ Medical History: Denies: Hx Peritoneal Dialysis Musculoskeletal Medical History: Denies Hx Arthritis Psychiatric Medical History: Denies: Hx Depression Past Surgical History: Reports: Hx Appendectomy, Hx Genitourinary Surgery - Gastric Sleeve 01/2015 - Immunizations Hx Diphtheria, Pertussis, Tetanus Vaccination: No Review of Systems - Review of Systems Notes: REVIEW OF SYSTEMS: CONSTITUTIONAL : Denies recent illness. Denies recent unintentional weight loss. Denies fever, chills, or sweats. EENT: Denies eye, ear, throat, or mouth pain, discharge, or symptoms. Denies nasal or sinus congestion. CARDIOVASCULAR: Denies chest pain. RESPIRATORY: Denies shortness of breath, cough, congestion, difficulty breathing, or wheezing. GASTROINTESTINAL: See HPI. GENITOURINARY: Denies difficulty urinating, burning, blood in urine, urgency or frequency. MUSCULOSKELETAL: Denies neck and back pain. Denies joint pain or swelling. SKIN: Denies rash, itchiness, or lesions HEMATOLOGIC : Denies easy bruising or bleeding. LYMPHATIC: Denies swollen, painful, enlarged glands. NEUROLOGICAL: Denies no numbness or tingling denies weakness. Denies headache. Denies altered mental status. Denies alteration in speech. PSYCHIATRIC: Denies stress, anxiety, alteration in sleep patterns, or depr ession. All other systems reviewed and negative. Physical Exam - Vital signs Vitals: Temp Pulse Resp BP Pulse Ox 98.6 F 65 16 162/79 H 100 08/14/19 15:52 08/14/19 15:52 08/14/19 15:52 08/14/19 15:52 08/14/19 15:52 - Notes Notes: PHYSICAL EXAMINATION: GENERAL: Appears obese, no acute distress. HEAD: Normocephalic, atraumatic. EYES: PERRL, conjunctiva normal, all extraocular movements intact, sclera nonicteric ENT: Moist mucous membranes. NECK: Supple, no noticeable swelling, redness, rash. Normal range of motion. LUNGS: Equal breath sounds bilaterally and clear to auscultation. No wheezes rales or rhonchi. CARDIOVASCULAR: S1-S2, regular rate, regular rhythm. Radial pulses 2+, normal. ABDOMEN: Normoactive bowel sounds. Soft, nontender, no guarding, no rebound tenderness, and no masses palpated. EXTREMITIES: Normal strength and range of motion, no pitting or edema. No cyanosis. NEUROLOGICAL: Moves all extremities upon command. Strength 5/5 in all extremities. PSYCH: Normal mood, normal affect. SKIN: Warm, dry. No rash, lesions, ulcerations noted. Normal skin turgor. Course - Re-evaluation Re-evalutation: 08/14/19 20:23 Hematology is unremarkable. Chemistries show hypokalemia. Will order a total of 60 M EQ's of potassium. LFTs are normal. Troponin is negative. hCG is also negative. Urinalysis shows small amount of blood. EKG shows sinus bradycardia. Heart rate is 48. Patient has not had a seizure since she has been here in the The emergency department. She has been here for a total 5 hours. Also discussed this patient with Dr. Tomas, my attending. She agrees patient is stable for discharge. Patient will follow-up with Dr. Hernandez tomorrow. Follow-up precautions were given. Verbal discharge instructions were given to the patient. They verbalized understanding. They are stable for discharge. - Vital Signs Vital signs: Temp Pulse Resp BP Pulse Ox 97.7 F 47 L 15 198/99 H 99 08/14/19 21:00 08/14/19 21:00 08/14/19 21:00 08/14/19 21:00 08/14/19 21:00 - Laboratory Result Diagrams: 08/14/19 18:20 08/14/19 18:20 Laboratory results interpreted by me: 08/14/19 08/14/19 18:20 18:20 Potassium 3.0 L* Carbon Dioxide 31 H Urine Protein 30 H Urine Blood SMALL H Discharge - Discharge Clinical Impression: Seizure disorder, Hypokalemia Nausea and vomiting Qualifiers: Vomiting type: unspecified Vomiting Intractability: unspecified Qualified Code(s): R11.2 - Nausea with vomiting, unspecified Condition: Stable Disposition: HOME, SELF-CARE Additional Instructions: Today you had a seizure. It is very important that you do not engage in any activities that could result in severe injury should you have a seizure. Specif ically, do not drive a vehicle, go into a body of water, take a bath, climb ladders, or operate any heavy machinery until you have been cleared by your neurologist. Please return to the ED immediately if you have multiple seizures close together, develop a severe headache, weakness, numbness, difficulty speaking, have a seizure in which you do not return to normal within 1 hour of the seizure, or have any other symptoms that are concerning to you. Follow-up with neurologist tomorrow. Your potassium was also low. Your potassium was replaced here in the emergency department. Please follow-up with your primary care provider to have your labs redrawn. Prescriptions: Ondansetron [Zofran Odt 4 mg Tablet] 1 - 2 tab PO Q4H PRN #15 tab.rapdis PRN Reason: For Nausea/Vomiting Referrals: JESUS HERNANDEZ MD [NO LOCAL MD] - Follow up tomorrow MELA FORD MD [Primary Care Provider] - Follow up tomorrow
[2019-08-14] MEDS ORDERED: ONDANSETRON ODT 4 MG TAB (6 TAB/ER DISP) PO PRN (20:29)
--- NOTE | 2019-08-14 20:34 | EKG REPORT ---
SEVERITY:- ABNORMAL ECG - SINUS BRADYCARDIA LEFT VENTRICULAR HYPERTROPHY : Confirmed by: Kiah Peters MD 14-Aug-2019 20:34:15
[2019-08-14 21:02] VITALS: BP 198/99
== END 2019-08-14 21:10 | disposition home or self-care (01) ==
LOC: ER 15:41
DX: G40.909 Epilepsy, unspecified, not intractable, without status epilepticus (principal); E87.6 Hypokalemia; R19.7 Diarrhea, unspecified; R11.2 Nausea with vomiting, unspecified; E78.00 Pure hypercholesterolemia, unspecified; I10 Essential (primary) hypertension; E11.9 Type 2 diabetes mellitus without complications
CPT/HCPCS: 93005; 99284; 96374; 36415; 83735; 84703; 85025; 80053; 81001; 84484; 71046; 93010; A9270 ×3; J2405; J3490

== ENCOUNTER 2019-11-29 11:53 | Emergency (ER) | payer MEDICARE, MEDICAID ==
--- NOTE | 2019-11-29 12:38 | ER Document Report ---
Entered by RADAMES KNOX SCRIBE 11/29/19 1219 Acting as scribe for:JEREMY NELSON MD ED Seizure - General Chief Complaint: Seizure Stated Complaint: POSSIBLE SEIZURE Time Seen by Provider: 11/29/19 12:02 Primary Care Provider: JESUS HERNANDEZ MD [NO LOCAL MD] - Follow up in 3-5 days MELA FORD MD [Primary Care Provider] - Follow up in 3-5 days Mode of Arrival: Medic Information source: Patient, Emergency Med Personnel Notes: This 39 year old female patient with a history of seizures brought in by EMS from home presents to the ED today with complaints of seizure that occurred just prior to arrival. Patient states that she had x5 seizures on 11/25 and x6 today. She states that on both days, she was in the hallway when the seizures occurred and was found by a family member. She notes that she did bite her tongue on 11/25, but is has healed now. She discloses that she has not been able to follow up with her neurologist Dr. Hernandez because he has been out of the office. She takes 200 mg Briviact BID and states that she did take it this morning at 0900. Denies urinary or fecal incontinence. - Related Data Allergies/Adverse Reactions: No Known Allergies Allergy (Verified 11/29/19 12:06) Past Medical History - General Information source: Patient, [facility] Records - Social History Smoking Status: Never Smoker Cigarette use (# per day): No Chew tobacco use (# tins/day): No Smoking Education Provided: No Frequency of alcohol use: None Drug Abuse: None Family History: Reviewed & Not Pertinent Patient has suicidal ideation: No Patient has homicidal ideation: No - Past Medical History Cardiac Medical History: Reports: Hx Hypertension Neurological Medical History: Reports: Hx Seizures Endocrine Medical History: Reports: Hx Diabetes Mellitus Type 2 Past Surgical History: Reports: Hx Abdominal Surgery - Gastric Sleeve 01/2015, Hx Appendectomy - Immunizations Hx Diphtheria, Pertussis, Tetanus Vaccination: No Review of Systems - Review of Systems Constitutional: No symptoms reported EENT: See HPI. denies: Other - Tongue bite Cardiovascular: No symptoms reported Respiratory: No symptoms reported Gastrointestinal: See HPI. denies: Fecal incontinence Genitourinary: See HPI. denies: Incontinence Female Genitourinary: No symptoms reported Musculoskeletal: No symptoms reported Skin: No symptoms reported Hematologic/Lymphatic: No symptoms reported Neurological/Psychological: See HPI, Seizure -: Yes All other systems reviewed and negative Physical Exam - Vital signs Vitals: Resp Pulse Ox 21 H 100 11/29/19 11:58 11/29/19 11:58 - General General appearance: Appears well, Alert In distress: None - HEENT Head: Normocephalic, Atraumatic Eyes: Normal Pupils: PERRL Mouth/Lips: Other - No tongue bite Mucous membranes: Normal - Respiratory Respiratory status: No respiratory distress Chest status: Nontender Breath sounds: Normal Chest palpation: Normal - Cardiovascular Rhythm: Regular Heart sounds: Normal auscultation Murmur: No Friction rub: No Gallop: None auscultated - Abdominal Inspection: Normal Distension: No distension Bowel sounds: Normal Tenderness: Nontender - Abdomen soft Organomegaly: No organomegaly - Back Back: Normal, Nontender - Extremities General upper extremity: Normal inspection General lower extremity: Normal inspection. No: Edema - Neurological Neuro grossly intact: Yes Cognition: Normal Orientation: AAOx4 Lennon Coma Scale Eye Opening: Spontaneous Lennon Coma Scale Verbal: Oriented Nona Coma Scale Motor: Obeys Commands Lennon Coma Scale Total: 15 Speech: Normal - Psychological Associated symptoms: Normal affect, Normal mood - Skin Skin Temperature: Warm Skin Moisture: Dry Skin Color: Normal Course - Re-evaluation Re-evalutation: 11/29/19 13:09 The patient's potassium was 2.9 today, it was 3.0 on her ER visit 08/14/2019. She does take hydrochlorothiazide 12.5 mg. I did try to call her neurologist Dr. Hernandez at 12:30 PM, I have not received a call back. He has been home recuperating from an illness, so I am not sure if he will return the call. Trying to contact someone in the office from the emergency room is generally unsuccessful. The patient was not discharged home on potassium supplements on her last ER visit. - Vital Signs Vital signs: Temp Pulse Resp BP Pulse Ox 98.1 F 58 L 18 119/63 95 11/29/19 13:32 11/29/19 13:32 11/29/19 13:32 11/29/19 13:32 11/29/19 13:32 - Laboratory Result Diagrams: 11/29/19 12:05 11/29/19 12:05 Laboratory results interpreted by me: 11/29/19 11/29/19 11/29/19 12:05 12:05 13:12 Hgb 11.7 L Hct 34.4 L RDW 14.1 H Potassium 2.9 L* Carbon Dioxide 35 H Urine Blood SMALL H Discharge - Discharge Clinical Impression: Hypokalemia, Multiple breakthrough seizures, Breakthrough seizure Condition: Stable Disposition: HOME, SELF-CARE Additional Instructions: Seizure, Known Epileptic: You have had a seizure. Seizures may "break through" in an epileptic due to stress of infection or injury, a change in blood chemistry, or drug and alcohol use. Another common cause is failure to take medication as prescribed. Your doctor has evaluated your situation for the likely cause of this seizure. It is important that you follow his advice concerning any medication changes and follow-up care. Further testing of anti-seizure medication levels in your blood may be necessary. If you have a petrol tanker driver's license, it's important that you DO NOT DRIVE until given permission by your physician. This seizure must be reported to the petrol tanker driver's license bureau. Call the doctor or return if seizures recur, or if new or unusual symptoms arise -- such as severe headache, confusion, excessive sleepiness, local weakness or numbness, neck stiffness, or fever. Hypokalemia: You have an abnormally decreased level of serum potassium. Hypokalemia may cause weakness, fatigue, or heart rhythm abnormalities. Sometimes there are no symptoms at all. Usually, low serum potassium is due to taking diuretics (water pills). It can also be due to excessive vomiting or diarrhea. If no obvious cause is evident, further evaluation will be necessary. Treatment is usually oral potassium supplements. Take these exactly as prescribed. You may also want to select foods which are naturally high in potassium -- fruits (such as bananas, cantaloupe, grapes, oranges, prunes, tomatoes), fresh vegetables (potatoes, spinach, beans, peas), orange or tomato juice, tomato pasta sauce, milk, fish (halibut, tuna, salmon, ymron) A follow-up blood test is usually performed to assure that the potassium is returning to normal. Call the physician if you suffer severe weakness, muscle twitching or cramping, palpitations (pounding or irregular heartbeat), or any other new or alarming symptoms. Continue your regular seizure medications. Take the potassium as prescribed. Drink plenty of fluids and get plenty of rest. Call your neurologist to schedule follow-up with one of the providers in the office, since we do not know when Dr. Hernandez will be back in the office. Follow-up with your primary care provider early next week to recheck your potassium levels and see if you need to stay on potassium supplements. RETURN TO THE EMERGENCY ROOM IF ANY NEW OR WORSENING SYMPTOMS. Prescriptions: Potassium Chloride 10 meq PO BID #20 tablet.er Referrals: MELA FORD MD [Primary Care Provider] - Follow up in 3-5 days JESUS HERNANDEZ MD [ LOCAL MD] - Follow up in 3-5 days I personally performed the services described in the documentation, reviewed and edited the documentation which was dictated to the scribe in my presence, and it accurately records my words and actions.
[2019-11-29 12:45] LABS: ABSOLUTE MONOCYTES (AUTO) 0.6 10^3/uL (0.1-1.4); ABSOLUTE NEUT (AUTO) 3.2 10^3/uL (1.7-8.2); BASOPHILS % (AUTO) 0.2 % (0-2); EOSINOPHILS % (AUTO) 0.3 % (0-6); HEMATOCRIT 34.4 % (36.0-47.0); HEMOGLOBIN 11.7 g/dL (12.0-15.5); LYMPHOCYTES % (AUTO) 43.6 % (13-45); MEAN CORPUSCULAR HEMOGLOBIN 29.1 pg (27.0-33.4); MEAN CORPUSCULAR HGB CONC 33.9 g/dL (32.0-36.0); MEAN CORPUSCULAR VOLUME 86 fl (80-97); MONOCYTES % (AUTO) 8.9 % (3-13); PLATELET COUNT 342 10^3/uL (150-450); RED CELL DISTRIBUTION WIDTH 14.1 % (11.5-14.0); TOTAL CELLS COUNTED % (AUTO) 100 %; WHITE BLOOD COUNT 6.8 10^3/uL (4.0-10.5)
[2019-11-29 12:53] LABS: ALBUMIN 3.7 g/dL (3.5-5.0); ALKALINE PHOSPHATASE 102 U/L (38-126); ANION GAP 7 (5-19); ASPARTATE AMINO TRANSFERASE 18 U/L (14-36); BILIRUBIN,DIRECT 0.3 mg/dL (0.0-0.4); BILIRUBIN,TOTAL 0.4 mg/dL (0.2-1.3); BLOOD UREA NITROGEN 8 mg/dL (7-20); CALCIUM 8.8 mg/dL (8.4-10.2); CARBON DIOXIDE 35 mmol/L (22-30); CHLORIDE 100 mmol/L (98-107); CREATINE KINASE 68 U/L (30-135); GLUCOSE 108 mg/dL (75-110); TOTAL PROTEIN 7.8 g/dL (6.3-8.2)
[2019-11-29 12:55] LABS: POTASSIUM 2.9 mmol/L (3.6-5.0)
[2019-11-29 13:40] LABS: APPEARANCE,URINE SLIGHTLY-CLOUDY; BILIRUBIN,URINE NEGATIVE (NEGATIVE); COLOR,URINE YELLOW; GLUCOSE, URINE NEGATIVE (NEGATIVE); KETONES,URINE NEGATIVE (NEGATIVE); LEUKOCYTE ESTERASE,URINE NEGATIVE (NEGATIVE); NITRITE,URINE NEGATIVE (NEGATIVE); PROTEIN,URINE NEGATIVE (NEGATIVE); URINE SPECIFIC GRAVITY 1.013; UROBILINOGEN,URINE NEGATIVE mg/dL (<2.0)
[2019-11-29] MEDS: POTASSIUM CHLORIDE 20 MEQ PACKET PO ONE ×2 (13:45→15:36)
[2019-11-29] MEDS ORDERED: ONDANSETRON HCL INJ/PF 4 MG/2 ML SDV IV ONE (14:02)
[2019-11-29] MEDS ORDERED: POTASSI CL 20 MEQ/50 ML RIDER 20 MEQ/50 ML RTUPB IV ONE (14:03)
[2019-11-29 19:22] VITALS: BP 145/79
--- NOTE | 2019-11-29 22:07 | EKG REPORT ---
SEVERITY:- ABNORMAL ECG - SINUS RHYTHM LEFT VENTRICULAR HYPERTROPHY : Confirmed by: Kiah Peters MD 29-Nov-2019 22:06:42
== END 2019-11-29 19:49 | disposition home or self-care (01) ==
LOC: ER 11:53
DX: R56.9 Unspecified convulsions (principal); E87.6 Hypokalemia; I10 Essential (primary) hypertension; E11.9 Type 2 diabetes mellitus without complications; Z98.84 Bariatric surgery status; Z79.899 Other long term (current) drug therapy
CPT/HCPCS: 93005; 99284; 96374; 96375; 36415; 82550; 85025; 80053; 81001; 93010; J2405; J3480; J3490